=== PATIENT | male | born 2005 | race Caucasian/White ===

== ENCOUNTER 2024-05-23 08:29 | Emergency (ER) | payer OTHER ==
[~2024-05-23] VITALS: Ht 175.3 cm; Wt 81.8 kg
[2024-05-23 08:38] VITALS: BP 122/63; TEMP 97.8; O2SAT 96
== END 2024-05-23 12:55 | disposition home or self-care (01) ==
LOC: M ED 08:29
DX: S70.02XA Contusion of left hip, initial encounter (principal); Y92.410 Unspecified street and highway as the place of occurrence of the external cause; Y93.9 Activity, unspecified; Y99.9 Unspecified external cause status; V49.59XA Passenger injured in collision with other motor vehicles in traffic accident, initial encounter; F17.290 Nicotine dependence, other tobacco product, uncomplicated; F10.10 Alcohol abuse, uncomplicated